=== PATIENT | female | born 1980 | race Caucasian/White ===

== ENCOUNTER 2017-07-06 06:04 | Emergency (ER) | payer OTHER, SELFPAY ==
[2017-07-06 06:05] VITALS: BP 96/74; PULSE 96; RESP 16; TEMP 36.4; O2SAT 99; BMI 26.4
[2017-07-06] MEDS: 0.9% Normal Saline 1,000 ML 1000 ML IV (06:19)
--- NOTE | 2017-07-06 06:19 | ED.DCSUM_ITS ---
- ER Visit Summary Date of Service: 07/06/17 Chief Complaint: [] Patient is having intermittent sharp and cramping diffuse abdominal pain mainly central associate 3 PM. Current severity is mild to moderate. She had 5 episodes of emesis and 8 episodes of loose watery diarrhea. She did eat [employer] food. No recent antibiotics. No bad food exposures otherwise. No home treatment. She tried Sprite. Comes in for further evaluation. History of Present Illness: The patient is a 37 F [] Physical Examination: Vital signs reviewed General: Well-nourished well-developed Head: Normocephalic atraumatic Eyes: Pupils equal round and reactive to light extraocular movements intact ENT: TMs clear no hemotympanum no trauma Neck: Nontender full range of motion Cardiovascular: Regular rate rhythm no murmurs normal S1-S2 Respiratory: No distress clear to auscultation bilaterally chest nontender Abdomen: Soft nontender nondistended normal bowel sounds no masses Back: Nontender no CVA tenderness Extremities: Nontender active range of motion ?4 extremities no trauma Skin: Normal color no trauma Neuro alert oriented cranial nerves II through XII intact normal strength sensation reflexes Test Results: [] Emergency Department Course and Treatment: [] At this time I think the patient likely has food poisoning versus viral gastroenteritis. She was given IV fluids , Zofran, Toradol, GI cocktail. Will be discharged with Zofran and ibuprofen. She will use Imodium as needed and Pepto-Bismol. She will follow-up as an outpatient. I do not feel she needs labs or imaging. Treatment Plan: [] Disposition: [] Impression: [] Nausea vomiting diarrhea Abdominal cramps This note was generated with [employer] dictation software. It may contain incorrect words, spelling, and punctuation that were not noted in review of the chart prior to signing ED Disposition - Plan for ED Patient: Chief Complaint: Abd Pain Prescriptions: Ondansetron [Zofran Odt] 8 mg PO Q8H PRN PRN #10 tab PRN Reason: Nausea Ibuprofen 600 mg PO 4X/DAY PRN #20 tab PRN Reason: Pain Referrals: [facility] [Primary Care Provider] -
--- NOTE | 2017-07-06 06:19 | ED.DEP ---
ED Disposition - Plan for ED Patient: Disposition: Home or Assisted Living Chief Complaint: Abd Pain Instructions: ED Diet Vomiting Diarrhea Prescriptions: Ondansetron [Zofran Odt] 8 mg PO Q8H PRN PRN #10 tab PRN Reason: Nausea Ibuprofen 600 mg PO 4X/DAY PRN #20 tab PRN Reason: Pain Referrals: [facility],Out of [Primary Care Provider] -
[2017-07-06] MEDS: Ondansetron 4 MG/2 ML Vial IV (06:21)
[2017-07-06] MEDS: Ketorolac 15 MG/ML Vial IV (06:21)
== END 2017-07-06 07:27 | disposition home or self-care (01) ==
PROVIDERS: Emergency Provider Emergency Medicine
DX: R11.2 Nausea with vomiting, unspecified (principal); R19.7 Diarrhea, unspecified; R10.9 Unspecified abdominal pain; Z72.0 Tobacco use
CPT/HCPCS: 99283; J7030; J2405